=== PATIENT | male | born 1965 | race African-American/Black ===

== ENCOUNTER 2019-01-18 08:25 | Emergency (ER) | payer OTHER ==
[~2019-01-18] VITALS: Ht 175.3 cm; Wt 90.7 kg
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
[2019-01-18] MEDS ORDERED: MORPHINE SULFATE 10 MG/ML VIAL. IM ONE (08:45)
[2019-01-18] MEDS ORDERED: MORPHINE SULFATE 10 MG/ML VIAL. IV ONE ×2 (08:45→09:30)
[2019-01-18 09:20] LABS: BASO % 1 % (0-3); EOS # 0.2 x10^3/uL (0.0-0.7); EOS % 2 % (0-3); HEMATOCRIT 46.4 % (39.0-53.0); HEMOGLOBIN 15.8 g/dL (13.0-17.5); LYMPH # 2.1 x10^3/uL (1.0-4.8); LYMPH % 25 % (24-48); MEAN CORPUSCULAR HEMOGLOBIN 29 pg (25-35); MEAN CORPUSCULAR HGB CONC 34 g/dL (31-37); MEAN CORPUSCULAR VOLUME 86 fL (79-100); MONO # 0.5 x10^3/uL (0.0-1.1); MONO % 6 % (0-9); NEUT # 5.5 x10^3uL (1.8-7.7); NEUT % 66 % (31-73); PLATELET COUNT 304 x10^3/uL (140-400); RED BLOOD COUNT 5.38 x10^6/uL (4.30-5.70); RED CELL DISTRIBUTION WIDTH 13.9 % (11.5-14.5); WHITE BLOOD COUNT 8.3 x10^3/uL (4.0-11.0)
[2019-01-18] MEDS ORDERED: silver sulfADIAZINE 1% CREAM 25GM TUBE. TP ONE (09:30)
[2019-01-18 09:34] LABS: GFR 94.2; POTASSIUM 3.9 mmol/L (3.5-5.1)
[2019-01-18 09:40] LABS: ALBUMIN 4.2 g/dL (3.4-5.0); ALBUMIN/GLOBULIN RATIO 1.3 (1.0-1.7); TOTAL BILIRUBIN 0.4 mg/dL (0.2-1.0); TOTAL PROTEIN 7.4 g/dL (6.4-8.2)
[2019-01-18] MEDS ORDERED: HYDROmorphone 2 MG/ML VIAL IV ONE ×4 (10:15→12:15)
[2019-01-18] MEDS ORDERED: KETOROLAC 30 MG/ML VIAL. IV ONE (11:00)
[2019-01-18] MEDS ORDERED: IV NORMAL SALINE 1000ML BAG 1,000 ML IV ONE (11:00)
[2019-01-18] MEDS ORDERED: ONDANSETRON PF 4 MG/2 ML VIAL. IV ONE (11:00)
[2019-01-18] MEDS ORDERED: BACITRACIN TOPICAL OINT 14GM TUBE. TP STA (11:20)
[2019-01-18] MEDS ORDERED: ONDA4TAB12 PO (12:17)
[2019-01-18] MEDS ORDERED: OXYC5CAP PO (12:17)
[2019-01-18] MEDS ORDERED: ACET325T9 PO (12:17)
[2019-01-18 12:30] VITALS: BP 134/92
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
== END 2019-01-18 13:00 | disposition home or self-care (01) ==
LOC: ER 08:25
DX: T20.20XA Burn of second degree of head, face, and neck, unspecified site, initial encounter (principal); T23.271A Burn of second degree of right wrist, initial encounter; T22.212A Burn of second degree of left forearm, initial encounter; T22.111A Burn of first degree of right forearm, initial encounter; T22.112A Burn of first degree of left forearm, initial encounter; K21.9 Gastro-esophageal reflux disease without esophagitis; W40.1XXA Explosion of explosive gases, initial encounter; Y93.89 Activity, other specified; Y92.89 Other specified places as the place of occurrence of the external cause; Y99.8 Other external cause status
CPT/HCPCS: 36415; 80053; 83690; 84484; 85025; 93005; 96374; 96375; 96376; 99285; G0480; J1170; J2270; J2405; J7030